=== PATIENT | male | born 1980 ===

== ENCOUNTER 2017-06-30 10:45 | Inpatient (IN) | payer OTHER ==
[~2017-06-30] VITALS: Ht 185.4 cm; Wt 72.2 kg
[2017-06-30 23:00] VITALS: BP 132/85; PULSE 73; TEMP 97.9
[2017-07-01 06:17] VITALS: BP 105/68; PULSE 76; TEMP 98.1
[2017-07-01 08:06] LABS: BASO % 0.6 % (0.0-2.0); EOS # 0.2 (0.0-0.7); EOS % 3.4 % (0-4.0); GRAN % 56.4 % (42.2-75.2); HEMOGLOBIN 14.7 g/dl (13.5-18.0); LYMPH # 1.5 (1.2-3.4); LYMPH % 21.1 % (20.0-51.0); MEAN CELL VOLUME 86 fl (80.0-100.0); MEAN CORPUSCULAR HEMOGLOBIN 30 pg (27.0-31.0); MEAN CORPUSCULAR HGB CONC 35 g/dl (33.0-37.0); MEAN PLATELET VOLUME 11.9 fl (7.4-10.4); MONO # 1.3 (0.1-0.6); MONO % 18.1 % (1.7-9.3); PLATELET COUNT 229 K/mm3 (130-400); REDCELL DISTRIBUTION WIDTH-CV 12.9 % (11.5-14.5); WHITE BLOOD COUNT 7.1 K/mm3 (4.8-10.8)
[2017-07-01 08:21] LABS: CREATININE, serum 0.74 mg/dL (0.66-1.25); POTASSIUM 3.5 mmol/L (3.4-5.0)
[2017-07-01 08:58] VITALS: BP 116/73; PULSE 80; TEMP 97.6
[2017-07-01 13:38] VITALS: BP 111/66; PULSE 69; TEMP 97.7
[2017-07-01 17:03] VITALS: BP 129/85; PULSE 86; TEMP 98.7
[2017-07-01 21:12] VITALS: BP 120/65; PULSE 79; TEMP 98
[2017-07-02 04:26] VITALS: BP 127/78; PULSE 79; TEMP 98.1
[2017-07-02 08:18] LABS: BASO # 0.1 (0.0-0.2); BASO % 0.7 % (0.0-2.0); EOS # 0.3 (0.0-0.7); EOS % 2.9 % (0-4.0); GRAN # 5.6 (1.4-6.5); GRAN % 64.3 % (42.2-75.2); HEMATOCRIT 39.9 % (42.0-52.0); HEMOGLOBIN 13.6 g/dl (13.5-18.0); LYMPH # 1.6 (1.2-3.4); LYMPH % 18.1 % (20.0-51.0); MEAN CELL VOLUME 86 fl (80.0-100.0); MEAN CORPUSCULAR HEMOGLOBIN 29 pg (27.0-31.0); MEAN CORPUSCULAR HGB CONC 34 g/dl (33.0-37.0); MEAN PLATELET VOLUME 11.6 fl (7.4-10.4); MONO # 1.2 (0.1-0.6); MONO % 13.5 % (1.7-9.3); PLATELET COUNT 245 K/mm3 (130-400); RED BLOOD COUNT 4.62 M/mm3 (4.20-5.60); WHITE BLOOD COUNT 8.6 K/mm3 (4.8-10.8)
[2017-07-02 08:30] LABS: CALCIUM 8.1 mg/dL (8.4-10.2); CREATININE, serum 0.67 mg/dL (0.66-1.25); POTASSIUM 3.9 mmol/L (3.4-5.0)
[2017-07-02 08:57] VITALS: BP 105/65; PULSE 67; TEMP 98.1
== END 2017-07-02 14:50 | disposition left against medical advice (07) | DRG 390 ==
LOC: SURG 10:45
PROVIDERS: Surgery
PROC: 0D9670Z Drainage of Stomach with Drainage Device, Via Natural or Artificial Opening (ICD-10-PCS; principal; 2017-06-30)
DX: K56.60 Unspecified intestinal obstruction (principal)
CPT/HCPCS: C9113; G0378; G0379; J1170; J2060; J2405; J3480